=== PATIENT | male | born 1990 | race Hispanic/Latino ===

== ENCOUNTER 2017-04-28 15:38 | Emergency (ER) | payer OTHER ==
[2017-04-28 15:39] VITALS: BMI 43.0
[2017-04-28 15:48] VITALS: BP 137/82; PULSE 75; RESP 20; TEMP 97.9; O2SAT 99
[2017-04-28] MEDS ORDERED: Sodium Chloride 0.9% 500 ML IV STA (16:01)
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
[2017-04-28 16:38] LABS: BLOOD UREA NITROGEN 10 mg/dL (7-21); CALCIUM 8.8 mg/dL (8.4-10.5); CARBON DIOXIDE 24 mmol/L (21-33); CHLORIDE 107 mmol/L (98-107); GFR AFRICAN-AMERICAN > 60; GLUCOSE,RANDOM 114 mg/dL (70-110); POTASSIUM 4.1 mmol/L (3.6-5.0); SODIUM 140 mmol/L (132-148)
[2017-04-28] MEDS ORDERED: TraMADol/Apap 37.5/325 mg Tab PO STA (17:41)
--- NOTE | 2017-04-29 08:26 | CT ---
PROCEDURE: CT Lumbar Spine without contrast HISTORY: back pain COMPARISON: None. TECHNIQUE: Axial computed tomography images were obtained of the lumbar spine without the use of intravenous contrast. Coronal and sagittal reformatted images were created and reviewed. Radiation dose: Total exam DLP = 1213 mGy-cm. This CT exam was performed using one or more of the following dose reduction techniques: Automated exposure control, adjustment of the mA and/or kV according to patient size, and/or use of iterative reconstruction technique. FINDINGS: VERTEBRAE: Unremarkable. No fracture. Normal alignment. DISCS/SPINAL CANAL/NEURAL FORAMINA: L1-2: Unremarkable. L2-3: Unremarkable. L3-4: Unremarkable. L4-5: Degenerative disc disease with disc ridge complex and thecal sac indentation. Bilateral foraminal stenosis.. L5-S1: Unremarkable. PARASPINAL SOFT TISSUES: Unremarkable. OTHER FINDINGS: None. IMPRESSION: No fracture.
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
== END 2017-04-28 18:30 | disposition home or self-care (01) ==
LOC: ED 15:38
DX: S32.009A Unspecified fracture of unspecified lumbar vertebra, initial encounter for closed fracture (principal); V49.9XXA Car occupant (driver) (passenger) injured in unspecified traffic accident, initial encounter; M54.5 Low back pain; R94.8 Abnormal results of function studies of other organs and systems; Z87.891 Personal history of nicotine dependence
CPT/HCPCS: 72131; 74177; 80048; 96360; 99283; J7040; Q9967

== ENCOUNTER 2018-03-13 19:11 | Emergency (ER) | payer OTHER ==
[2018-03-13 19:11] VITALS: BMI 43.0
[2018-03-13 19:19] VITALS: O2SAT 96
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
[2018-03-13 21:14] VITALS: BP 131/82; PULSE 76; RESP 19; TEMP 98.5
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
--- NOTE | 2018-03-14 09:43 | RAD ---
PROCEDURE: Left Ankle Radiographs. HISTORY: fall, ankle pain COMPARISON: None FINDINGS: BONES: Bone alignment and mineralization are normal. There is no acute displaced fracture or bone destruction. There is a prominent plantar calcaneal spur. JOINTS: Normal. Ankle mortise maintained. Talar dome intact SOFT TISSUES: There is severe periarticular soft tissue swelling. OTHER FINDINGS: None. IMPRESSION: No acute fracture or dislocation. Severe periarticular soft tissue swelling.
== END 2018-03-13 22:00 | disposition home or self-care (01) ==
LOC: ED 19:11
DX: M25.572 Pain in left ankle and joints of left foot (principal); M79.672 Pain in left foot; Z87.891 Personal history of nicotine dependence

== ENCOUNTER 2018-11-20 13:23 | Emergency (ER) | payer MEDICAID, OTHER ==
[2018-11-20 13:43] VITALS: BMI 39.4
[2018-11-20 13:46] VITALS: RESP 18; TEMP 98.7
[2018-11-20] MEDS ORDERED: Lidocaine 5% Patch TD ONE (13:56)
--- NOTE | 2018-11-20 15:04 | ED PDOC ---
Arrival/HPI - General Chief Complaint: Back Pain Time Seen by Provider: 11/20/18 13:25 Historian: Patient - History of Present Illness Narrative History of Present Illness (Text): 11/20/18 15:22 A 28 year old male, whose past medical history includes chronic back pain, presents to the emergency department complaining of low back pain. Patient states that the current flare up started about 1 week ago. He denies trauma or injury. He reports sitting at table when the sharp, stabbing pain started in the lower back. He states that pain is in the lower back and radiates upwards towards middle of the spine. He notes that he has seen a doctor for his back pain, and notes that he was told he needed an MRI. The patient was prescribed Flexeril and Tramadol for his pain. The patient denies fevers, chills, headache, dizziness, chest pain, shortness of breath, dyspnea on exertion, cough, abdominal pain, nausea, vomiting, diarrhea, neck pain, urinary/bowel changes, or any other complaint. Time/Duration: 1 week Symptom Onset: Sudden Symptom Course: Unchanged Activities at Onset: Rest, Light Context: Home Past Medical History - Provider Review Nursing Documentation Reviewed: Yes - Past History Past History: No Previous - Infectious Disease Hx of Infectious Diseases: None - Tetanus Immunization Tetanus Immunization: Unknown - Cardiac Hx Cardiac Disorders: No - Pulmonary Hx Respiratory Disorders: No - Neurological Hx Neurological Disorder: No - HEENT Hx HEENT Disorder: No - Renal Hx Renal Disorder: No - Endocrine/Metabolic Hx Endocrine Disorders: No - Hematological/Oncological Hx Blood Disorders: No - Integumentary Hx Dermatological Disorder: No - Musculoskeletal/Rheumatological Hx Musculoskeletal Disorders: No - Gastrointestinal Hx Gastrointestinal Disorders: No - Genitourinary/Gynecological Hx Genitourinary Disorders: No - Psychiatric Hx Psychophysiologic Disorder: No Hx Substance Use: Yes (CANNABIS) - Past Surgical History Past Surgical History: No Previous - Surgical History Hx Tonsillectomy: Yes - Anesthesia Hx Anesthesia: No Hx Anesthesia Reactions: No Hx Malignant Hyperthermia: No - Suicidal Assessment Feels Threatened In Home Enviroment: No Family/Social History - Physician Review Nursing Documentation Reviewed: Yes Family/Social History: No Known Family HX Smoking Status: Former Smoker Hx Alcohol Use: Yes Hx Substance Use: Yes (CANNABIS) Hx Substance Use Treatment: No Allergies/Home Meds Allergies/Adverse Reactions: Allergies naproxen [From Aleve] Adverse Reaction (Verified 11/20/18 13:42) SWELLING Review of Systems - Physician Review All systems were reviewed & negative as marked: Yes - Review of Systems Constitutional: absent: Fevers Respiratory: absent: SOB, Cough Cardiovascular: absent: Chest Pain, [place] Gastrointestinal: absent: Abdominal Pain, Stool Changes, Diarrhea, Nausea, Vomiting Musculoskeletal: Back Pain. absent: Neck Pain Neurological: absent: Headache, Dizziness Physical Exam Vital Signs Reviewed: Yes Vital Signs Temp Pulse Resp BP Pulse Ox 11/20/18 13:43 98.7 F 68 18 128/87 96 Temperature: Afebrile Blood Pressure: Normal Pulse: Regular Respiratory Rate: Normal Appearance: Positive for: Well-Appearing, Non-Toxic, Comfortable Pain Distress: None Mental Status: Positive for: Alert and Oriented X 3 - Systems Exam Head: Present: Atraumatic, Normocephalic Pupils: Present: PERRL Extroacular Muscles: Present: EOMI Conjunctiva: Present: Normal Mouth: Present: Moist Mucous Membranes Neck: Present: Normal Range of Motion Respiratory/Chest: Present: Clear to Auscultation, Good Air Exchange. No: Respiratory Distress, Accessory Muscle Use Cardiovascular: Present: Regular Rate and Rhythm, Normal S1, S2. No: Murmurs Abdomen: No: Tenderness, Distention, Peritoneal Signs Back: Present: Paraspinal Tenderness (to the left lumbar area) Upper Extremity: Present: Normal Inspection. No: Cyanosis, Edema Lower Extremity: Present: Normal Inspection. No: Edema Neurological: Present: GCS=15, CN II-XII Intact, Speech Normal Skin: Present: Warm, Dry, Normal Color. No: Rashes Psychiatric: Present: Alert, Oriented x 3, Normal Insight, Normal Concentration Medical Decision Making ED Course and Treatment: 11/20/18 15:23 Impression: A 28 year old male presents to the emergency department for further evaluation of back pain. Differential Diagnosis included but are not limited to: Herniated disk Lumbar stenosis Ankylosing Spondylothesis Plan: -- Valium, Toradol and Lidoderm -- Reassess and disposition Prior Visits: Notes and results from previous visits were reviewed. Progress Notes: 11/20/18 15:01 On re-evaluation, patient feels better and is in no acute distress. I have discussed the results and plan with the patient, who expresses understanding. Patient in agreement with plan to be discharged home. Patient is stable for discharge. Patient was instructed to follow up with physician or return if symptoms worsen or new concerning symptoms arise. - Medication Orders Current Medication Orders: Discontinued Medications Diazepam (Valium) 5 mg PO ONCE ONE; Protocol Stop: 11/20/18 13:57 Last Admin: 11/20/18 14:19 Dose: 5 mg Ketorolac Tromethamine (Toradol) 60 mg IM STAT STA Stop: 11/20/18 13:57 Last Admin: 11/20/18 14:20 Dose: 60 mg MAR Pain Assessment Document 11/20/18 14:20 EQ (Rec: 11/20/18 14:20 EQ [id number]) Pain Reassessment Is this a pain reassessment? No Sleep Is patient sleeping during reassessment? No Presence of Pain Presence of Pain Yes IM Administration Charges Document 11/20/18 14:20 EQ (Rec: 11/20/18 14:20 EQ [id number]) Charges for Administration # of IM Administrations 1 Lidocaine (Lidoderm) 1 ea TD ONCE ONE Stop: 11/20/18 13:57 Last Admin: 11/20/18 14:20 Dose: 1 ea MAR Transdermal Patch Site Document 11/20/18 14:20 EQ (Rec: 11/20/18 14:20 EQ [id number] Transdermal Patch Site Transdermal Patch Site Left Lower Back - Scribe Statement The provider has reviewed the documentation as recorded by the Scribe Tessa Reese Provider Scribe Attestation: All medical record entries made by the Scribe were at my direction and personally dictated by me. I have reviewed the chart and agree that the record accurately reflects my personal performance of the history, physical exam, medical decision making, and the department course for this patient. I have also personally directed, reviewed, and agree with the discharge instructions and disposition. Disposition/Present on Arrival - Present on Arrival Any Indicators Present on Arrival: No History of DVT/PE: No History of Uncontrolled Diabetes: No Urinary Catheter: No History of Decub. Ulcer: No History Surgical Site Infection Following: None - Disposition Have Diagnosis and Disposition been Completed?: Yes Diagnosis: Back pain, Lower back pain Disposition: HOME/ ROUTINE Disposition Time: 15:01 Patient Plan: Discharge Condition: IMPROVED Discharge Instructions (ExitCare): Chronic Pain (DC), Low Back Pain (DC) Print Language: [place] Additional Instructions: All medical record entries made by the Scribe were at my direction and personally dictated by me. I have reviewed the chart and agree that the record accurately reflects my personal performance of the history, physical exam, medical decision making, and the department course for this patient. I have also personally directed, reviewed, and agree with the discharge instructions and disposition. Prescriptions: Ibuprofen [Motrin Tab] 600 mg PO Q6H PRN 6 Days #24 tab PRN Reason: Pain, Moderate (4-7) Lidocaine 5% [Lidoderm] 1 ea TD Q12H #5 patch Referrals: Dashawn Paz DO [Staff Provider] - [place] up [place] [facility] [place] - Follow up with primary Karmen Fowler MD [Medical Doctor] - Follow up with primary Forms: [employer] ([place])
[2018-11-20 15:36] VITALS: BP 125/82; PULSE 70; O2SAT 98
== END 2018-11-20 15:35 | disposition home or self-care (01) ==
LOC: ED 13:23
DX: M54.5 Low back pain (principal); Z87.891 Personal history of nicotine dependence
CPT/HCPCS: 96372; 99282; J1885